=== PATIENT | male | born 1995 | race Caucasian/White ===

== ENCOUNTER 2016-10-31 14:53 | Emergency (ER) | payer OTHER ==
--- NOTE | 2016-10-31 16:16 | ED NURSING NOTES ---
Clinical Report - Nurses [facility] [address] [place] [address] 10/31/2016 14:57 Patient: ELIJAH GERMAN TRIAGE Triage time 15:40. Acuity: LEVEL 3. Chief Complaint: LEFT LOWER EXTREMITY REDNESS. SEPSIS SCREEN: Sepsis Screen. Negative (no infection suspected/documented). --15:48 Yady Torres R.N. 15:40 10/31/16. BP: 128/69 taken on the left arm, while sitting. HR: 80. RR: 18. O2 saturation: 99%. Temp: 97.4 F (oral). Pain level now: 10/28. --15:48 Yady Torres R.N. Weight: 115.6 kg stated. Height/Length: 76 inches Per Patient. BMI: 31. --15:45 Yady Torres R.N. Medications None. --15:42 Yady Torres R.N. Allergies No Known Drug Allergy. --15:42 Yady Torres R.N. History Arrived by private vehicle. Historian: patient. Primary physician (no pcp). ( Laceration to top of Left Foot). Injury occurred. This occurred (about 3 days ago). Occurred at home. ( Dropped a glass on his foot, glass broke, foot sustained crescent shaped lac to top. Sensation in toes and good cap refill.). He has had trouble walking. ( A lot of pain and concerned about glass possibly being in the wound). Treatment RIPRAP MAN: Used OTC topical product (antibiotic). PAST MEDICAL HX: Negative. Tetanus status: up-to-date. SOCIAL HX: Light tobacco smoker (cigarette)- less than 1/2 a pack per day. Occasional alcohol use. History of drug use: marijuana. No infectious disease exposure. SELF HARM ASSESSMENT: A self harm assessment was performed. The patient answered "no" to the question "Do you have thoughts of harming or killing yourself?". FALL RISK ASSESSMENT: Fall risk assessment completed. No fall risk identified. NUTRITIONAL RISK ASSESSMENT: The nutritional risk assessment revealed no deficiencies. FUNCTIONAL ASSESSMENT: Functional assessment: no impairments noted. LEARNING NEEDS ASSESSMENT: The learning needs assessment revealed no barriers. ABUSE ASSESSMENT: Abuse assessment: ("yes") The patient was asked "Do you feel safe in your home?". SKIN INTEGRITY ASSESSMENT: Skin integrity risk assessment completed. No skin integrity risk identified. --15:48 Yady Torres R.N. PROBLEMS: no known problems. ADDITIONAL SURGERIES: no known surgeries. Interventions ID band on patient. To room. --15:48 Yady Torres R.N. PHYSICAL ASSESSMENT Ambulatory to room. GENERAL / NEURO / PSYCH: Oriented X 4. Alert. Appears in no acute distress. CVS: Pulses: Pulses otherwise normal. EXTREMITIES: Erythema on the extremities. Extremity pulses are within normal limits. Extremities exhibit normal ROM. No lower extremity edema. Left dorsal foot: subcutaneous 3.0 cm laceration with controlled bleeding and suspected foreign body. SKIN: Skin is warm and dry. --15:50 Yady Torres R.N. NURSING PROGRESS NOTES Reassurance given. Two patient identifiers checked. Call light placed in reach. Bed placed in lowest position. Brakes of bed on. Patient ready for evaluation- ED physician and STRATEGIC ALLIANCES MANAGER notified. --15:51 Yady Torres R.N. 16:02 10/31/2016 TDAP IM 0.5 mL given. (Lot#: [id number], expiration date: 09/28/2018). Given in the right deltoid. Allergies verified and confirmed 5 rights. Vaccine information statement provided to the patient. --16:02 Yady Torres R.N. Wound cleansed. Applied clean dressing consisting of 4x4 gauze, following the application of antibiotic ointment. Secured with kerlix. --16:19 Yady Torres R.N. DISPOSITION / DISCHARGE Condition at departure: improved. No learning barriers present. Discharge instructions provided and reviewed with the patient. Patient verbalized understanding. Written instructions provided in Faroese. The patient was discharged by the nurse practitioner. He was discharged home. He left the Emergency Department ambulatory and via private vehicle. Patient driving. --16:34 Yady Torres R.N. 16:33 10/31/16. BP: 131/65. HR: 80. RR: 16. O2 saturation: 100%. Temp: 98.4 F (oral). Pain level now: 08/28. --16:34 Yady Torres R.N. Departure time: 16:34. --16:34 Yady Torres R.N. Locked/Released at 10/31/2016 18:42 by Yady Torres R.N.
--- NOTE | 2016-10-31 16:16 | ED CLINICAL REPORT ---
Clinical Report - Physicians/Mid Levels [facility] [address] [place] [address] 10/31/2016 14:57 Patient: ELIJAH GERMAN Time Seen: 15:54; initial patient contact, initial documentation, patient care assumed. Arrived- By private vehicle. Historian- patient. HISTORY OF PRESENT ILLNESS Chief Complaint: Injury to the left foot. The injury happened about 2 days ago. The patient sustained a laceration from broken glass (dropped drinking glass on foot, barefoot). Occurred at home. Patient is experiencing mild pain. Patient denies injury to the head or neck. No other injury. REVIEW OF SYSTEMS The patient sustained a laceration. A single foreign body is suspected within laceration. No swelling, tingling, weakness or numbness. He has no pain on weight bearing. All systems otherwise negative, except as recorded above. PAST HISTORY Negative. Tetanus immunization status is unknown. SOCIAL HISTORY Light tobacco smoker. Occasional alcohol use. History of occasional drug use: marijuana. No recent travel. Is a local resident. ADDITIONAL NOTES The nursing notes have been reviewed with agreement regarding the chief complaint, HPI, ROS, PMH and patient medications and allergies. PHYSICAL EXAM Vital Signs: 10/31/2016 15:40 BP: 128/69. HR: 80. RR: 18. O2 saturation: 99%. Temp: 97.4 F. Pain level now: 6/10. Have been reviewed as normal and appear to be correct. Appearance: Alert. Oriented X3. No acute distress. Head: Head atraumatic. Eyes: Pupils equal, round and reactive to light. Eyes normal inspection. Respiratory: No respiratory distress. Skin: Skin intact. Skin warm and dry. Extremities: Foot injury present. Left foot: mild erythema and subcutaneous 1.0 cm laceration of the dorsal aspect of the mid foot. Neurovascular intact distally. (circular lac to top of foot with mild erythema around, no fb seen or palpated and not suspected based on looks of lac and depth). No tenderness, swelling, abrasion, ecchymosis or puncture wound. No foreign body or deformity. No limitation of weight bearing. No ankle injury. Foot and ankle exam otherwise negative. Extremities otherwise negative. Gait: Normal gait. Neuro, Vascular and Tendons: Vascular status intact. Sensation intact. Motor intact. Tendon function intact. Neuro: Oriented X 3. No motor deficit. No sensory deficit. Note: isolated injury to L foot. PROGRESS AND PROCEDURES Course of Care: tx options discussed re doing xray of foot, explained glass does not always show up and risks of fb in it were low, pt agreed to no xray and discussed s/s of infection with or without fb present, pt admitted to putting abx cream on it, but not doing any true wound care with washing it or anything else. Patient counseled in person regarding the patient's stable condition and diagnosis. Differential Diagnosis: Other possible considerations: foot lac, fb, wound infection. Above considerations are based on history and physical exam. Differential diagnosis was discussed with patient. Disposition: Discharged home in good and improved condition (16:16). Condition: good and stable. CLINICAL IMPRESSION Single deep laceration to the left foot. Delayed treatment.No infection or foreign body present. INSTRUCTIONS Protect wound and keep wound area clean. Soak in warm soapy water twice daily. Apply neosporin twice daily. Warnings: TETANUS: You were given a tetanus shot during your visit. Make a note for future reference. GENERAL WARNINGS: Return or contact your physician immediately if your condition worsens or changes unexpectedly, if not improving as expected, or if other problems arise. Specifically return if problem worsens. Prescription Medications: Cephalexin 500 mg: take 1 capsule orally every 12 hours for 10 days. No refill. Follow-up: Follow up with your doctor in about three days as needed and for wound check. Call for an appointment. Summary of care provided to patient. Understanding of the discharge instructions verbalized by patient. (Electronically signed by Chhaya Whitfield A.R.N.P. 10/31/2016 17:59)
--- NOTE | 2016-10-31 16:16 | ED NURSING NOTES ---
Clinical Report - Nurses [facility] [address] [place] [address] 10/31/2016 14:57 Patient: ELIJAH GERMAN TRIAGE Triage time 15:40. Acuity: LEVEL 3. Chief Complaint: LEFT LOWER EXTREMITY REDNESS. SEPSIS SCREEN: Sepsis Screen. Negative (no infection suspected/documented). --15:48 Yady Torres R.N. 15:40 10/31/16. BP: 128/69 taken on the left arm, while sitting. HR: 80. RR: 18. O2 saturation: 99%. Temp: 97.4 F (oral). Pain level now: 10/28. --15:48 Yady Torres R.N. Weight: 115.6 kg stated. Height/Length: 76 inches Per Patient. BMI: 31. --15:45 Yady Torres R.N. Medications None. --15:42 Yady Torres R.N. Allergies No Known Drug Allergy. --15:42 Yady Torres R.N. History Arrived by private vehicle. Historian: patient. Primary physician (no pcp). ( Laceration to top of Left Foot). Injury occurred. This occurred (about 3 days ago). Occurred at home. ( Dropped a glass on his foot, glass broke, foot sustained crescent shaped lac to top. Sensation in toes and good cap refill.). He has had trouble walking. ( A lot of pain and concerned about glass possibly being in the wound). Treatment DIRECTOR OF EVENT MARKETING: Used OTC topical product (antibiotic). PAST MEDICAL HX: Negative. Tetanus status: up-to-date. SOCIAL HX: Light tobacco smoker (cigarette)- less than 1/2 a pack per day. Occasional alcohol use. History of drug use: marijuana. No infectious disease exposure. SELF HARM ASSESSMENT: A self harm assessment was performed. The patient answered "no" to the question "Do you have thoughts of harming or killing yourself?". FALL RISK ASSESSMENT: Fall risk assessment completed. No fall risk identified. NUTRITIONAL RISK ASSESSMENT: The nutritional risk assessment revealed no deficiencies. FUNCTIONAL ASSESSMENT: Functional assessment: no impairments noted. LEARNING NEEDS ASSESSMENT: The learning needs assessment revealed no barriers. ABUSE ASSESSMENT: Abuse assessment: ("yes") The patient was asked "Do you feel safe in your home?". SKIN INTEGRITY ASSESSMENT: Skin integrity risk assessment completed. No skin integrity risk identified. --15:48 Yady Torres R.N. PROBLEMS: no known problems. ADDITIONAL SURGERIES: no known surgeries. Interventions ID band on patient. To room. --15:48 Yady Torres R.N. PHYSICAL ASSESSMENT Ambulatory to room. GENERAL / NEURO / PSYCH: Oriented X 4. Alert. Appears in no acute distress. CVS: Pulses: Pulses otherwise normal. EXTREMITIES: Erythema on the extremities. Extremity pulses are within normal limits. Extremities exhibit normal ROM. No lower extremity edema. Left dorsal foot: subcutaneous 3.0 cm laceration with controlled bleeding and suspected foreign body. SKIN: Skin is warm and dry. --15:50 Yady Torres R.N. NURSING PROGRESS NOTES Reassurance given. Two patient identifiers checked. Call light placed in reach. Bed placed in lowest position. Brakes of bed on. Patient ready for evaluation- ED physician and CODING SUPPORT SPECIALIST notified. --15:51 Yady Torres R.N. 16:02 10/31/2016 TDAP IM 0.5 mL given. (Lot#: [id number], expiration date: 09/28/2018). Given in the right deltoid. Allergies verified and confirmed 5 rights. Vaccine information statement provided to the patient. --16:02 Yady Torres R.N. Wound cleansed. Applied clean dressing consisting of 4x4 gauze, following the application of antibiotic ointment. Secured with kerlix. --16:19 Yady Torres R.N. DISPOSITION / DISCHARGE Condition at departure: improved. No learning barriers present. Discharge instructions provided and reviewed with the patient. Patient verbalized understanding. Written instructions provided in Latvian. The patient was discharged by the nurse practitioner. He was discharged home. He left the Emergency Department ambulatory and via private vehicle. Patient driving. --16:34 Yady Torres R.N. 16:33 10/31/16. BP: 131/65. HR: 80. RR: 16. O2 saturation: 100%. Temp: 98.4 F (oral). Pain level now: 08/28. --16:34 Yady Torres R.N. Departure time: 16:34. --16:34 Yady Torres R.N. Locked/Released at 10/31/2016 18:42 by Yady Torres R.N.
--- NOTE | 2016-10-31 16:16 | ED ORDER SUMMARY ---
..... Patient: ELIJAH GERMAN OrderSheet [facility] VisitID: [id number] [place] [address] 21y, M Registration Date/Time: 10/31/2016 ORDER SHEET Weight: 115.6 kg (stated) Allergies: No Known Drug Allergy GENERAL ORDERS: Dress Wounds (16:00 10/31/2016 HBivens A.R.N.P.) (16:18 JBest R.N.) MEDICATION ORDERS: Tdap IM 0.5 mL (NOW, per protocol) (16:00 10/31/2016 HBivens A.R.N.P.) (16:02 PEDROest R.N.) IV FLUIDS: ORDER SHEET NOTES: [Electronically signed by Chhaya WhitfieldR.N.POpal (17:59 10/31/2016)] [Electronically signed by Yady Torres R.N. (18:42 10/31/2016)] [Electronically locked/signed by Yady Torres R.N. (18:42 10/31/2016)]
--- NOTE | 2016-10-31 16:16 | ED ORDER SUMMARY ---
..... Patient: ELIJAH GERMAN OrderSheet [facility] VisitID: [id number] [place] [address] 21y, M Registration Date/Time: 10/31/2016 ORDER SHEET Weight: 115.6 kg (stated) Allergies: No Known Drug Allergy GENERAL ORDERS: Dress Wounds (16:00 10/31/2016 HBivens A.R.N.P.) (16:18 JBest R.N.) MEDICATION ORDERS: Tdap IM 0.5 mL (NOW, per protocol) (16:00 10/31/2016 HBivens A.R.N.P.) (16:02 PEDROest R.N.) IV FLUIDS: ORDER SHEET NOTES: [Electronically signed by Chhaya WhitfieldR.N.POpal (17:59 10/31/2016)] [Electronically signed by Yady Torres R.N. (18:42 10/31/2016)] [Electronically locked/signed by Yady Torres R.N. (18:42 10/31/2016)]
--- NOTE | 2016-10-31 18:42 | ED MAR SUMMARY ---
..... Medication Administration Record [facility] [address] [place] [address] Patient: ELIJAH GERMAN Visit ID: [id number] 21y, M Weight: 115.6 kg Height/Length: 76 in BMI: 31 ALLERGIES: No Known Drug Allergy Given 16:02 10/31/2016 Yady Torres R.N. Medication Administered: TDAP [IM], Dose: 0.5 mL IM. Medication Ordered: Tdap IM 0.5 mL (NOW, per protocol).
--- NOTE | 2016-10-31 18:42 | ED DISCHARGE INSTRUCTIONS ---
Patient: ELIJAH GERMAN General Instructions [facility] VisitID: [id number] [place] [address] 21y, M Registration Date/Time: 10/31/2016 Single deep laceration to the left foot. Delayed treatment.No infection or foreign body present. INSTRUCTIONS Protect wound and keep wound area clean. Soak in warm soapy water twice daily. Apply neosporin twice daily. Warnings: TETANUS: You were given a tetanus shot during your visit. Make a note for future reference. GENERAL WARNINGS: Return or contact your physician immediately if your condition worsens or changes unexpectedly, if not improving as expected, or if other problems arise. Specifically return if problem worsens. Prescription Medications: Cephalexin 500 mg: take 1 capsule orally every 12 hours for 10 days. No refill. Follow-up: Follow up with your doctor in about three days as needed and for wound check. Call for an appointment. Summary of care provided to patient. Understanding of the discharge instructions verbalized by patient. ADDITIONAL INFORMATION Laceration (All Closures) Alaceration is a cut through the skin. This will usually require stitches (sutures) or kailey if it is deep. Minor cuts may be treated with a surgical tape closure orskin glue. Home care The following guidelines will help you care for your laceration at home: Extremity, face, or trunk wounds Keep the wound clean and dry. If a bandage was applied and it becomes wet or dirty, replace it. Otherwise, leave it in place for the first 24 hours. If stitches or kailey were used, clean the wound daily. After removing the bandage, wash the area with soap and water. Use a wet cotton swab to loosen and remove any blood or crust that forms. The doctor may prescribe an antibiotic cream or ointment to prevent infection. Do not stop taking this medication until you have finished the prescribed course or the doctor tells you to stop. The doctor may also prescribe medications for pain. Follow the doctors instructions for taking these medications. You may remove the bandage to shower as usual after the first 24 hours, but do not soak the area in water (no swimming) until the stitches or kailey are removed. If surgical tape was used, keep the area clean and dry. If it becomes wet, blot it dry with a towel. If skin glue was used, do not scratch, rub, or pick at the adhesive film. Do not place tape directly over the film. Do not apply liquid, ointment, or creams to the wound while the film is in place. Do not clean the wound with peroxide and do not apply ointments. Avoid activities that cause heavy sweating until the film has fallen off. Protect the wound from prolonged exposure to sunlight or tanning lamps. You may shower as usual but do not soak the wound in water (no baths or swimming). The film will fall off by itself in 510 days. Scalp wounds During the first two days, you may carefully rinse your hair in the shower to remove blood, glass or dirt particles. After two days, you may shower and shampoo your hair normally. Do not soak your scalp in the tub or go swimming until the stitches or kailey have been removed. Talk with your doctor before applying any antibiotic ointment to the wound. Mouth wounds Eat soft foods to reduce pain. If the cut is inside of your mouth, clean by rinsing after each meal and at bedtime with a mixture of equal parts water and hydrogen peroxide (do not swallow!). Or, you can use a cotton swab to directly apply hydrogen peroxide onto the cut. Mouth wounds can be painful when eating. You may use an [id number] local numbing solution for pain relief. If this is not available, you may use any numbing solution for teething babies. You may apply this directly to the sores with a cotton-tip swab or with your finger. Follow-up care Follow up with your health care provider. Most skin wounds heal within ten days. Mouth and facial wounds heal within five days. However, even with proper treatment, a wound infection may sometimes occur. Therefore, you should check the wound daily for signs of infection listed below. Stitches should be removed from the face within five days; stitches and kailey should be removed from other parts of the body within 714 days. If dissolving stitches were used in the mouth, these will fall out or dissolve without the need for removal. If tape closures were used, remove them yourself if they have not fallen off after 7 days. Ifskin glue was used, the film will fall off by itself in 510 days. When to seek medical care Get prompt medical attention if any of these occur: Bleeding not controlled by direct pressure Signs of infection, including increasing pain in the wound, increasing wound redness or swelling, or pus coming from the wound Fever of 100.4F (38C) or higher, or as directed by your health care provider Stitches or kailey come apart or fall out or surgical tape falls off before 7 days Wound edges re-open Laceration, Extremity (Sutures, Kailey, Or Tape) A laceration is a cut through the skin. This will usually require stitches (sutures) or kailey if it is deep. Minor cuts may be treated with surgical tape closures. Home care The following guidelines will help you care for your laceration at home: Keep the wound clean and dry. If a bandage was applied and it becomes wet or dirty, replace it. Otherwise, leave it in place for the first 24 hours, then change it once a day or as directed. If stitches or kailey were used, clean the wound daily: After removing the bandage, wash the area with soap and water. Use a wet cotton swab to loosen and remove any blood or crust that forms. After cleaning, keep the wound clean and dry. Talk with your doctor before applying any antibiotic ointment to the wound. Reapply the bandage. You may remove the bandage to shower as usual after the first 24 hours, but do not soak the area in water (no swimming) until the stitches or kailey are removed. If surgical tape closures were used, keep the area clean and dry. If it becomes wet, blot it dry with a towel. The doctor may prescribe an antibiotic cream or ointment to prevent infection. Do not stop taking this medication until you have finished the prescribed course or the doctor tells you to stop. The doctor may also prescribe medications for pain. Follow the doctors instructions for taking these medications. If you have chronic liver or kidney disease or ever had a stomach ulcer or GI bleeding, talk with your doctor before using these medicines. Follow-up care Follow up with your health care provider. Most skin wounds heal within ten days. However, an infection may sometimes occur despite proper treatment. Therefore, check the wound daily for the signs of infection listed below. Stitches and kailey should be removed within 714 days. If surgical tape closures were used, you may remove them after 10 days, if they have not fallen off by then. Notify your doctor if you notice persistent numbness or weakness in the injured extremity. (Note:A radiologist will review any X-rays that were taken. We will notify you of any new findings that may affect your care.) When to seek medical care Get prompt medical attention if any of these occur: Increasing pain in the wound Redness, swelling, or pus coming from the wound Fever of 100.4F (38C) or higher, or as directed by your health care provider If stitches or kailey come apart or fall out before your next appointment If the surgical tape closures fall off within seven days, or the wound edges re-open Bleeding not controlled by direct pressure Laceration, Infected (Not Sutured) A laceration is a cut in the skin. Most lacerations heal within 510 days without a problem. Sometimes, even wounds that are carefully cleaned at the time of injury become infected. Because of the infection, and the amount of time that has passed since injury, the wound cannot be closed. It will heal best if left open and cleaned daily. It will seal over by growing new tissue from the sides and the bottom of the wound. Antibiotics may be prescribed. A scar will probably remain after it has healed. Home care The following guidelines will help you care for your laceration at home: Unless otherwise instructed, change the bandage twice a day for the first few days, until the drainage stops. Then change it once a day. If the bandage becomes wet, stained with wound fluid, or dirty, change it. Bandage removal and replacement: After removing the bandage, wash the area with soap and water. Use a wet cotton swab to loosen and remove any blood or crust that forms. After cleaning, keep the wound clean and dry. Talk with your doctor before applying any antibiotic ointment to the wound. Reapply a fresh bandage. You may remove the bandage to shower as usual after the first 24 hours, but do not soak the area in water (no swimming) until the sutures are removed. The doctor may prescribe an antibiotic cream or ointment to prevent infection. Do not stop taking this medication until you have finished the prescribed course or the doctor tells you to stop. The doctor may also prescribe medications for pain. Follow the doctors instructions for taking these medications.If you have chronic liver or kidney disease or ever had a stomach ulcer or GI bleeding, talk with your doctor before using these medicines. Follow-up care Follow up with your health care provider. It is important to keep your follow-up appointment to be certain that the wound is improving. When to seek medical care Get prompt medical attention if any of these occur: Increasing pain, redness, or swelling Red streaks coming from the wound Pus coming from the wound (that wasn't there before this visit) Fever of 100.4F (38C) or higher, or as directed by your health care provider Diphtheria Toxoid Adsorbed, Pertussis Vaccine, Acellular (Adsorbed), Tetanus Toxoid, Adsorbed Suspension for injection What is this medicine? DIPHTHERIA and TETANUS TOXOIDS; PERTUSSIS VACCINE (dif THEER ee uh and TET n us TOK soids; per BRENDAN soliz SEEN) is used to prevent diphtheria, tetanus, and pertussis infections. How should I use this medicine? This vaccine is for injection into a muscle. It is given by a health managed care manager. A copy of Vaccine Information Statements will be given before each vaccination. Read this sheet carefully each time. The sheet may change frequently. Talk to your programs director regarding the use of this vaccine in children. While the DTP vaccine may be given to children ages 6 weeks to 7 years and the Tdap vaccine may be given to children at least 10 years old, precautions do apply. What side effects may I notice from receiving this medicine? Side effects that you should report to your doctor or health managed care manager as soon as possible: allergic reactions like skin rash, itching or hives, swelling of the face, lips, or tongue breathing problems fever of 103 degrees F or more flu-like symptoms inconsolable crying infection pain, tingling, numbness in the hands or feet seizures swelling of arm or leg that was injected unusually weak or tired Side effects that usually do not require immediate medical attention (report these side effects to your doctor or health managed care manager if they continue or are bothersome): fussy, irritable loss of appetite fever of 102 degrees F or less pain, tenderness, redness, swelling, or a 'knot' at site where injected vomiting What may interact with this medicine? immune globulin medicines that suppress your immune function like adalimumab, anakinra, infliximab medicines to treat cancer medicines that treat or prevent blood clots like warfarin, enoxaparin, and dalteparin steroid medicines like prednisone or cortisone What if I miss a dose? It is important not to miss your dose. Call your doctor or health managed care manager if you are unable to keep an appointment. Where should I keep my medicine? This drug is given in a hospital or clinic and will not be stored at home. What should I tell my health care provider before I take this medicine? They need to know if you have any of these conditions: blood disorders like hemophilia fever or infection immune system problems neurologic disease seizures an unusual or allergic reaction to vaccines, thimerosal, latex, other medicines, foods, dyes, or preservatives or trying to get breast-feeding What should I watch for while using this medicine? See your health care provider for all shots of this vaccine as directed. To have protection from infection, you must have 3 shots of this vaccine plus boosters as needed. Tell your doctor right away if you have any serious or unusual side effects after getting this vaccine. You have been given the following additional information: Laceration, All Laceration, Extrem (Suture, Staple, Or Tape) Laceration, Infected (Not Sutured) Diphtheria Toxoid Adsorbed, Pertussis Vaccine, Acellular (Adsorbed), Tetanus Toxoid, Adsorbed Suspension for injection (Electronically signed by Chhaya Whitfield A.R.N.P. 10/31/2016 17:59)
--- NOTE | 2016-10-31 18:42 | ED MAR SUMMARY ---
..... Medication Administration Record [facility] [address] [place] [address] Patient: ELIJAH GERMAN Visit ID: [id number] 21y, M Weight: 115.6 kg Height/Length: 76 in BMI: 31 ALLERGIES: No Known Drug Allergy Given 16:02 10/31/2016 Yady Torres R.N. Medication Administered: TDAP [IM], Dose: 0.5 mL IM. Medication Ordered: Tdap IM 0.5 mL (NOW, per protocol).
--- NOTE | 2016-10-31 18:42 | ED MED RECONCILIATION SUMMARY ---
Patient: ELIJAH GERMAN Medication Reconciliation Report [facility] VisitID: [id number] [address] [place] [address] 21y, M Registration Date/Time: 10/31/2016 Weight: 115.6 kg Height/Length: 76 in. BMI: 31.0 ALLERGIES: No Known Drug Allergy The patient's Home Medications are listed below: NONE. The source(s) of the original Home Medication information: Not obtained. The following Medications were given to the patient in the Emergency Department: TDAP [IM] IM 0.5 mL, administered: 10/31/2016 4:02:00 PM The following Medications were prescribed to the patient: Cephalexin 500 mg: take 1 capsule orally every 12 hours for 10 days. No refill. -- Chhaya Whitfield A.R.N.P.
--- NOTE | 2016-10-31 18:42 | ED MED RECONCILIATION SUMMARY ---
Patient: ELIJAH GERMAN Medication Reconciliation Report [facility] VisitID: [id number] [address] [place] [address] 21y, M Registration Date/Time: 10/31/2016 Weight: 115.6 kg Height/Length: 76 in. BMI: 31.0 ALLERGIES: No Known Drug Allergy The patient's Home Medications are listed below: NONE. The source(s) of the original Home Medication information: Not obtained. The following Medications were given to the patient in the Emergency Department: TDAP [IM] IM 0.5 mL, administered: 10/31/2016 4:02:00 PM The following Medications were prescribed to the patient: Cephalexin 500 mg: take 1 capsule orally every 12 hours for 10 days. No refill. -- Chhaya Whitfield A.R.N.P.
== END 2016-10-31 16:35 | disposition home or self-care (01) ==
LOC: ED SRH 14:53
DX: S91.312A Laceration without foreign body, left foot, initial encounter (principal); W25.XXXA Contact with sharp glass, initial encounter; Y92.019 Unspecified place in single-family (private) house as the place of occurrence of the external cause; Z23 Encounter for immunization; F17.210 Nicotine dependence, cigarettes, uncomplicated